=== PATIENT | male | born 1960 | race Caucasian/White ===

== ENCOUNTER → 2017-12-17 | Outpatient (CLI) | payer MEDICARE, OTHER ==
[2017-12-17 17:13] LABS: BASOPHILS ABSOLUTE AUTO 0.04 K/mm3 (0.00-0.23); BASOPHILS PERCENT AUTO 1 % (0-2); EOSINOPHILS ABSOLUTE AUTO 0.22 K/mm3 (0.00-0.68); EOSINOPHILS PERCENT AUTO 3 % (0-6); Hematocrit 43.5 % (37.0-53.0); Hemoglobin 15.1 g/dL (13.5-17.5); IMMATURE GRAN ABSOLUTE AUTO 0.04 K/mm3 (0.00-0.10); IMMATURE GRAN PERCENT AUTO 1 % (0-1); LYMPHOCYTES ABSOLUTE AUTO 1.58 K/mm3 (0.84-5.20); LYMPHOCYTES PERCENT AUTO 23 % (21-46); MONOCYTES ABSOLUTE AUTO 0.64 K/mm3 (0.16-1.47); MONOCYTES PERCENT AUTO 9 % (4-13); Mean Corpuscular HGB 29.9 pg (26.0-34.0); Mean Corpuscular HGB Conc 34.7 g/dL (31.5-36.5); Mean Corpuscular Volume 86 fL (80-100); Mean Platelet Volume 10.3 fL (9.1-12.4); NEUTROPHILS ABSOLUTE AUTO 4.37 K/mm3 (1.96-9.15); NEUTROPHILS PERCENT AUTO 63 % (41-73); Platelet Count 225 K/mm3 (150-400); RDW Coefficient Variation 12.1 % (11.7-14.2); Red Blood Cell Count 5.05 M/mm3 (4.30-5.90); White Blood Cell Count 6.89 K/mm3 (4.00-11.30)
== END ==
LOC: LAB 17:06 → LAB SHORT 17:06
PROVIDERS: Physician Assistant
DX: R53.83 Other fatigue (principal)
CPT/HCPCS: 84443; 85025

== ENCOUNTER 2018-04-01 10:34 | Emergency (ER) | payer OTHER, MEDICARE ==
[~2018-04-01] VITALS: Ht 180.3 cm; Wt 108.0 kg
[2018-04-01] MEDS ORDERED: LEVE500 PO (11:21)
[2018-04-01] MEDS ORDERED: LORA.5 PO (11:22)
[2018-04-01] MEDS ORDERED: Aspirin EC81 MG (11:22)
== END 2018-04-01 12:12 | disposition home or self-care (01) ==
LOC: ER 10:34
DX: S60.121A Contusion of right index finger with damage to nail, initial encounter (principal); W22.8XXA Striking against or struck by other objects, initial encounter; Z79.899 Other long term (current) drug therapy; Z85.841 Personal history of malignant neoplasm of brain
CPT/HCPCS: 11740; 73140; 99283-25

== ENCOUNTER 2022-06-24 15:44 | Emergency (ER) | payer MEDICARE, OTHER ==
[~2022-06-24] VITALS: Ht 180.3 cm; Wt 100.7 kg
[~2022-06-24 15:44] MED LIST: Aspirin EC81 MG; LEVE500 PO; LORA.5 PO
== END 2022-06-24 20:20 | disposition home or self-care (01) ==
LOC: ER 15:44
DX: R29.898 Other symptoms and signs involving the musculoskeletal system (principal); Q67.0 Congenital facial asymmetry; Z85.841 Personal history of malignant neoplasm of brain
CPT/HCPCS: 70450